=== PATIENT | male | born 1955 | race Asian ===

== ENCOUNTER 2017-11-23 10:16 | Emergency (ER) | payer SELFPAY ==
[~2017-11-23] VITALS: Ht 170.2 cm; Wt 79.5 kg
[2017-11-23 10:28] LABS: GLUCOSE,POINT OF CARE 389 MG/DL (70-110)
[2017-11-23] MEDS ORDERED: LISI-660 PO (10:33)
[2017-11-23] MEDS ORDERED: GLIM2 PO (10:33)
[2017-11-23] MEDS ORDERED: METF500T4 PO (10:33)
[2017-11-23] MEDS ORDERED: SIMV-259 PO (10:33)
[2017-11-23] MEDS ORDERED: ASPI81 PO (10:33)
[2017-11-23] MEDS ORDERED: SILVER NITRATE APPLICATOR 1 EA STICK TP ONE (11:15)
[2017-11-23 12:00] VITALS: BP 129/72
== END 2017-11-23 12:32 | disposition home or self-care (01) ==
LOC: EMS 10:19
DX: R04.0 Epistaxis (principal); E11.65 Type 2 diabetes mellitus with hyperglycemia; E78.5 Hyperlipidemia, unspecified; Z79.84 Long term (current) use of oral hypoglycemic drugs; Z79.82 Long term (current) use of aspirin
CPT/HCPCS: 30901; 82962; 99284; Z7610